=== PATIENT | female | born 1955 ===

== ENCOUNTER 2025-03-25 14:20 | Outpatient (AMB) | payer MEDICARE, SELFPAY ==
--- NOTE | 2025-03-25 14:23 | MHC.PC.OV ---
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 Required: No Allergies latex Allergy (Mild, Verified 03/25/25 14:28) Rash Sulfa (Sulfonamide Antibiotics) Allergy (Mild, Verified 03/25/25 14:28) Back Pain Medication List - Last Reconciled 03/25/25 by Katie Peterson PA-C No Known Home Meds Tobacco use date assessed: 03/25/25 Fall risk assessment: No Falls in past year Last assessed Fall Risk: 03/25/25 Dental Screening Dental Screen Date: 03/25/25 Did you have a dental visit in the last 12 months?: Yes Did you have a dental problem in the last 6 months where you did not have access to dental care?: No Was dental information given to patient?: Patient has dentist HPI [facility] [employer] [facility] HPI Details Patient is a 69-year-old female who presents today to establish care. She is transferring from [facility]. No acute concerns today CV: Blood pressure today in the office is 132/76. Uro: a couple years ago had blood in the urine and was dx with UTI. 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, 2023 Colonoscopy: never, would do cologuard Mammo: overdue Bone density: overdue Lung ca screen: never had, unsure of going Fam hx: father parkinson's PFSH Surgical History (Updated 03/25/25 @ 14:31 by Eder Schmidt MA) H/O breast surgery History of surgery on arm Social History (Updated 03/25/25 @ 14:31 by Eder Schmidt MA) Housing: House Alcohol intake: current Patient Tobacco Use Status: Current everyday Tobacco user Cigarettes Per Day: 15 Years Smoked: 40 Packs per year/per ci.00 e-Cigarette/Vaping Use: Never Used Second Hand Smoke Exposure: Yes Use of substances other than those prescribed or required for medical reasons: No service: No Current occupational status: employed Current occupation: insurance representative Current occupational exposures/hazards: No Cognitive needs: No Hearing needs: No Vision needs: No Questionnaire PHQ-9 Over the last 2 weeks, how often have you been bothered by any of the following problems? 1. Little interest or pleasure in doing things: not at all 2. Feeling down, depressed, or hopeless: not at all 3. Trouble falling or staying asleep, or sleeping too much: not at all 4. Feeling tired or having little energy: not at all 5. Poor appetite or overeating: not at all 6. Feeling bad about yourself - or that you are a failure or have let yourself or your family down: not at all 7. Trouble concentrating on things, such as reading the newspaper or watching television: not at all 8. Moving or speaking so slowly that other people could have noticed. Or the opposite - being so fidgety or restless that you have been moving around a lot more than usual: not at all 9. Thoughts that you would be better off or of hurting yourself in some way: not at all Total score: 0 Depression Screening Interpretation: Negative Depression Screening Done: Yes 35652 - PHQ-9 Billing: Yes Source: Developed by Drs. Aravind Miguel, Estrella Garcia, Bryan Tobias and colleagues, with an educational óscar from [employer] Thrive Questionnaire Date Thrive assessed: 03/23/25 I am a: Patient What is your living situation today?: I have a steady place to live Within the past 12 months, did the food you bought not last and you didn't have the money to get more?: I choose not to answer this question Within the past 12 months, did you worry whether your food would run out before you got money to buy more?: I choose not to answer this question Do you have trouble paying for medicines?: I choose not to answer this question Do you have trouble getting transportation to medical appointments?: I choose not to answer this question Do you have trouble paying your heating and electricity bill?: I choose not to answer this question Do you have trouble taking care of your child, family member or friend?: I choose not to answer this question Do you have trouble with day-to-day activities such as bathing, preparing meals, shopping, managing finances, etc.?: I choose not to answer this question Are you currently unemployed and looking for a job?: I choose not to answer this question Are you interested in more education?: I choose not to answer this question Please select the resources that you would like help with: None Currently or been in a relationship where the following occur: I choose not to answer THRIVE Score: 0 AUDIT C Alcohol Use Questionnaire (AUDIT-C) 1. How often do you have a drink containing alcohol?: 2-3 times a week 2. How many drinks containing alcohol do you have on a typical day when you are drinking?: 1 or 2 3. How often do you have six or more drinks on one occasion?: Never Total Score: 3 Score Reviewed/Action Taken: Yes PJ-7 AMB Questionnaire PJ-7 Date PJ - 7 assessed: 03/25/25 Feeling nervous, anxious, or on edge: 0 = Not at all Not being able to stop or control worryin = Not at all Worrying too much about different things: 0 = Not at all Trouble relaxin = Not at all Being so restless that it is hard to sit still: 0 = Not at all Becoming easily annoyed or irritable: 0 = Not at all Feeling afraid as if something awful might happen: 0 = Not at all Total PJ-7 score (0-4 normal; 5-9 mild; 10-14 moderate; 15-21 severe): 0 Source: Developed by Drs. Aravind Miguel, Estrella Garcia, Bryan Tobias and colleagues, with an educational óscar from [employer] PJ-7 Assessment Billing PJ-7 Assessment Tool: PJ-7 Assessment 85569 Physical exam (Primary Care) Vital Signs: Last Vital Signs Temp 98.5 F 03/25/25 14:32 Pulse 78 03/25/25 14:32 Resp 18 03/25/25 14:32 BP 132/76 03/25/25 14:32 Pulse Ox 97 03/25/25 14:32 Oxygen Delivery Method Room Air 03/25/25 14:32 BMI result Body Mass Index 26.1 Tobacco/Smoking Status: Tobacco use Status Tobacco use date assessed 03/25/25 03/25/25 14:32 Patient Tobacco Use Status Current everyday Tobacco 03/25/25 14:32 e-Cigarette/Vaping Use Never Used 03/25/25 14:32 PHQ-9: PHQ-9 Score PHQ-9: Total score 0 03/25/25 14:28 Depression Screening Interpretation: Negative Thrive Assessment: Date of Thrive Assessment Date Thrive assessed 03/23/25 03/25/25 14:25 Currently or been in a relationship where the following occur: I choose not to answer Const Orientation/consciousness: patient oriented x3 HENMT Ears: hearing grossly normal bilaterally General nose exam: No nasal polyps present Face and sinus: Yes sinuses nontender Mouth: Normal oral and palatal mucosa present Eyes Pupils: Equal, round and reactive pupils present EOM: EOMs intact bilaterally Neck Neck: Yes full ROM and Yes no lymphadenopathy Thyroid: Thyroid normal Lymphatic: no lymphadenopathy noted Chest Chest palpation & inspection: normal inspection of the chest Resp Auscultation: clear to auscultation bilaterally Cardio Rate: regular rate Rhythm: regular rhythm Heart sounds: S1 normal heart sound present and S2 normal heart sound present Peripheral pulses: Peripheral pulses 2+ throughout GI Other: Soft, nontender Inspection: Yes normal to inspection Palpation (GI): Soft to palpation and Other GI palpation findings present (nontender, no cva tenderness) Auscultation: normoactive bowel sounds Rectal Exam - Female: deferred General: Yes no CVA tenderness Back/Spine/Pelvis Other: Nontender Back: no CVA tenderness Skin General skin exam: no rashes or lesions noted Neuro General: patient oriented x3, gait normal and no focal motor deficits Cranial nerves: Yes Equal, round and reactive pupils present Motor exam (neuro): 5/5 motor strength present throughout Sensory Exam: double simultaneous stimulation for sensation normal Coordination: hkzloj-eq-bief test normal and Romberg test negative Extrem General: Yes normal to inspection and Yes full ROM Psych Affect: normal affect Attitude: cooperative Thought process: Normal thought process present Thought content: Normal thought content present Insight: Good insight present (Psych) Judgement: Good judgement present (Psych) Coding Level of Care Code New Pt Prev Care >65yr (89113) Diagnoses Routine general medical examination at a health care facility Z00.00 Smoker F17.200 Additional Codes PJ-7 Assessment Billing - PJ-7 Assessment Tool: PJ-7 Assessment 75952 ([id number]) PHQ-9 - 28109 - PHQ-9 Billing: Yes ([id number]) Assessment & Plan Assessment & Plan (1) Routine general medical examination at a health care facility: Code(s): Z00.00 - Encounter for general adult medical examination without abnormal findings Plan: hm reviewed labs ordered cologuard ordered mammo ordered bone density ordered (2) Smoker: Code(s): F17.200 - Nicotine dependence, unspecified, uncomplicated Category: Social Hx Plan: declines ldct Orders: Orders Comprehensive [place]. Panel Fast Today Z00.00 - Encounter for general adult medical examination without abnormal findings Complete Blood Count Auto Diff Today Z00.00 - Encounter for general adult medical examination without abnormal findings TSH reflex Free T4 Today Z00.00 - Encounter for general adult medical examination without abnormal findings UA CC w/rflx Micro + Cult Today R30.0 - Dysuria, Z00.00 - Encounter for general adult medical examination without abnormal findings MM screening mammo BI Today Z12.31 - Encounter for screening mammogram for malignant neoplasm of breast XR DEXA axial skeleton Today Z78.0 - Asymptomatic menopausal state Lipid Panel Today Z00.00 - Encounter for general adult medical examination without abnormal findings Microalbumin, Random (w Creat) Today Z00.00 - Encounter for general adult medical examination without abnormal findings Referrals Cologuard Test Z12.11 - Encounter for screening for malignant neoplasm of colon Medications: New hydrocortisone 2.5% 1 appl CA Q8-12H PRN 30 grams 3RF itching
[2025-03-25 14:32] VITALS: BP 132/76; PULSE 78; RESP 18; TEMP 36.9; O2SAT 97; BMI 26.1
--- OUTSIDE RECORDS SUMMARY | 2025-03-25 20:32 | XMS_ITS | Patient Health Record ---
Author Organization [facility] Address [address] [place] [address] Care Team Providers Care Medical Claims Processor Name Role Phone Gabriella Cain Unavailable [phone] Allergies Allergen (clinical drug ingredient) Drug/Non Drug Allergy documented on EMR Reaction Allergy Type Onset Date Status Latex Latex Unknown Allergy Active polyethylene glycols Polyethylene Glycol Unknown Drug Joseph rgy Active Substance with sulfonamide structure and antibacterial mechanism of action (substance) Sulfa Antibiotics Unknown Drug Allergy Active thimerosal Thimerosal Unknown Drug Allergy Activ e Reason For Referral No Information Medications Medication SIG (Take, Route, Fr equency, Duration) Notes Start Date End Date Status Vagifem 10 MCG 1 tablet Vaginal Two times a Week; Duration: 84 days Active Acidophilus Active Vagifem 10 MCG 1 tablet Vaginal THR ICE A WEEK; Duration: 90 days 05/23/2024 Active Social History Tobacco Use: Social History Observation Description Date Details (start date - stop date) Current Smoker NA - NA AUDIT-C (Standard) Question Answer Notes Did you have a drink contain ing alcohol in the past year? Yes How often did you have six o r more drinks on one occasion in the past year? Never (0 point) How many drinks did you have on a typical day when you were drinking in the past year? 1 or 2 drinks (0 point) How often did you have a dri nk containing alcohol in the past year? Monthly or less (1 point) Points 1 Interpretation Negative Tobacco Control (Standard) Question Answer Notes Tobacco use: Current smoker How often do you smoke cigarettes? Every day How many cigarettes a day do you smoke? - Section Notes: .CE: Smoking: Current smoker .CE: Smoking Amount: 1 PPD .CE: ALCOHOL: socially drinks alcohol Problems Problem Type SNOMED Code ICD Code Onset Dates Problem Status W/U Status Risk Notes Problem Postmenopausal atrophic vaginitis (91443187) Postmenopausal atrophic vaginitis (N95.2) Active confirmed Problem Squamous cell carcinoma of skin (769926605) Squamous cell carcinoma of skin, unspecified (C44.92) Active confirmed Problem Hemorrhoids without complication (33120313) Unspecified hemorrhoids without mention of complication (455.6) Active confirmed Major Problem Menopausal symptom (61829612) Symptomatic menopausal or female climacteric states (627.2) Active confirmed Major Problem Gynecological examination normal (314061692940159) Routine gynecological examination (V72.31) Active confirmed Major Problem Counseling (263250567) Counseling NOS (V65.40) Active confirmed Diag Problem Screening for malignant neoplasm of colon (586224611) Special screening for malignant neoplasms, colon (V76.51) Active confirmed Major Vital Signs Temperature 97.9 degrees Fahrenheit 05/23/2024 Blood pressure diastolic 80 mm Hg 05/23/2024 Height 64 in 05/23/2024 Blood pressure systolic 130 mm Hg 05/23/2024 Weight 159 lbs 05/23/2024 BMI 27.29 kg/m2 05/23/2024 Encounters Encounter Location Date Provider Diagnosis [address] [place] [address] 05/23/2024 Gabriella Cain Encounter for gynecological examination (general) (routine) without abnormal findings Z01.419 ; Encounter for screening mammogram for malignant neoplasm of breast Z12.31 ; Other specified disorders of bone density and structure, multiple sites M85.89 ; Postmenopausal atrophic vaginitis N95.2 and Dizziness and giddiness R42 Assessments Encounter Date Diagnosis (ICD Code) Assessment Notes Treatment Notes Treatment Clinical Notes Section Notes 05/23/2024 Encounter for gynecological examination (general) (routine) without abnormal findings (ICD-10 - Z01.419) NO PAP TEST, DUE IN 2024. 05/23/2024 Encounter for screening mammogram for malignant neoplasm of breast (ICD-10 - Z12.31) REGULAR MAMMOGRAMS AND SBE'S WERE RECOMMENDED. 05/23/2024 Other specified disorders of bone density and structure, multiple sites (ICD-10 - M85.89) DISCUSSED HER LAST BMD AND SEVERE OSTEOPENIA AND ITS IMPACT ON HER HEALTH. ADEQUATE CALCIUM AND VIT D. WEIGHT BEARING EXERCISES. REPEAT BMD IN 2024. 05/23/2024 Postmenopausal atrophic vaginitis (ICD-10 - N95.2) CONTINUE VAGIFEM. RX WITHOU SUBS WILL BE SENT TO PHARMACY. 05/23/2024 Dizziness and giddiness (ICD-10 - R42) DISCUSSED COMMON CAUSES OF LIGHT HEADEDNESS. ADVISED PAT TO SEE HER PCP AND TO DISCUSS THIS WITH HER OR HIM. WORK UP WILL BE STARTED: CBC, COMPREHENSIVE METABOLIC PROFILE, TSH, HEMOGLOBIN A1C, LIPID PROFILE. Plan Of Treatment Pending Test Test Name Order Date MAMMOGRAM, SCREENING 02/05/2019 MAMMOGRAM, SCREENING 02/10/2020 MAMMOGRAM, SCREENING 05/11/2021 MAMMOGRAM, SCREENING 05/16/2022 MAMMOGRAM, SCREENING 05/18/2023 MAMMOGRAM, SCREENING 10/08/2017 Urinalysis 09/28/2015 Urinalysis 10/08/2017 DIAGNOSTIC MAMMOGRAM, RIGHT BREAST 05/11 1,25OH VITAMIN D 11/02/2015 25OH VITAMIN D 05/22/2022 N-TELOPEPTIDE CROSS 05/22/2022 PTH, INTACT 05/22/2022 TSH 11/02/2015 BONE DENSITY 05/18/2023 BONE DENSITY 05/23/2024 BONE DENSITY 05/11/2021 BONE DENSITY 10/08/2017 MM Digital Mammo Screening 02/05/2019 MM Digital Mammo Screening 10/08/2017 MM Digital Mammo Screening 05/11/2021 MM Digital Mammo Screening 02/10/2020 MM Digital Mammo Screening 05/16/2022 MM Digital Mammo Screening 05/23/2024 MM Digital Mammo Screening 05/18/2023 MM Digital Mammo Screening 10/02/2016 Right Breast Ultrasound 05/11/2021 Hemoglobin [id number] 05/23/2024 TSH-[id number] 05/23/2024 CBC, Platelet, No Differential-[id number] Vitamin D, [id number] 05/23/2024 Lipid Panel-[id number] 05/23/2024 Comp. Metabolic Panel [phone] Next Appt Details Provider Name:Gabriella kim, 06/01/2025 08:20:00 AM, [address], [address], [place], [address], Insurance Providers Payer Name Payer Address Payer Phone Subscriber Number Group Number Insured Name Patient Relationship to Insured Coverage Start Date Coverage End Date MEDICARE [address] [place], [place] [id number] CHRISTIAN MORALES Self - patient is the insured MEDEX [address] [place] [address] [phone] [id number] CHRISTIAN MORALES Self - patient is the insured Medical (General) History Medical History History ICD Code Unspecified hemorrhoids K64.9 Menopausal and female climacteric states N95.1 Postmenopausal atrophic vaginitis N95.2 Disorder of bone density and structure, unspecified M85.9 Unspecified hemorrhoids K64.9 Squamous cell carcinoma of skin, unspeci fied C44.92 Unspecified lump in the right breast, lo wer outer quadrant N63.13 Surgical History Surgery Date(Month/Year) Eyebrow Evcision Left Breast Biopsy Tooth Removed 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
== END 2025-03-25 15:15 | disposition home or self-care (01) ==
LOC: HO.HMCFM 14:20
PROVIDERS: PCP Physician Assistant; Visit Provider Physician Assistant
DX: Z00.00 Encounter for general adult medical examination without abnormal findings (principal); F17.200 Nicotine dependence, unspecified, uncomplicated

== ENCOUNTER → 2025-03-25 14:20 | Outpatient (BNVA) | payer MEDICARE, SELFPAY | PROVIDERS: PCP Physician Assistant; Visit Provider Physician Assistant | DX: Z00.00 Encounter for general adult medical examination without abnormal findings (principal); R30.0 Dysuria; F17.210 Nicotine dependence, cigarettes, uncomplicated | CPT/HCPCS: 96127; 99387 ==

== ENCOUNTER 2025-04-20 07:57 | Outpatient (REF) | payer MEDICARE, SELFPAY ==
[2025-04-20 11:21] LABS: MANUAL DIFF FLAG NO
[2025-04-20 11:44] LABS: Appearance Urine Cloudy; Glucose Urine UA Negative (Negative); PH 6.0 (5.0-9.0); Specific Gravity - Urine 1.020 (1.005-1.025)
[2025-04-20 12:08] LABS: Hematocrit 43.7 % (37.0-47.0); Hemoglobin 14.2 g/dl (12.0-16.0); Imm Gran Abs Auto 0.03 X10*3/uL (0.00-0.03); Imm Gran Pct Auto 0.4 % (0.0-0.4); Lymphocytes Absolute Auto 2.2 X10*3/uL (1.2-4.9); Mean Corpuscular HGB Conc 32.5 g/dl (31.0-35.0); Mean Corpuscular Hemoglobin 31.5 pg (27.0-33.0); Mean Corpuscular Volume 96.9 fL (80.0-98.0); NRBC Abs Auto 0.000 X10*3/uL (0.0-0.012); NRBC Pct Auto 0.0 /100WBC (0.0-0.2); Platelet Count 212 X10*3/uL (160-400); Red Blood Count 4.51 X10*6/uL (4.20-5.50); White Blood Count 7.5 X10*3/uL (4.8-10.8)
[2025-04-20 12:22] LABS: Microalbum/Creatinine Ratio Ur 3.6 ug/mg cr (<30)
[2025-04-20 12:37] LABS: Alanine Aminotransferase 14 U/L (0-31); Albumin Level 4.2 g/dL (3.5-5.0); Alkaline Phosphatase 63 U/L (39-117); Anion Gap 10 (12-20); Aspartate Amino Transferase 24 U/L (5-31); Blood Urea Nitrogen 16 mg/dL (9-16); Calcium 9.2 mg/dL (8.4-10.2); Carbon Dioxide 28 mmol/L (22-29); Chloride 108 mmol/L (96-108); Cholesterol 193 mg/dL (<200); Estimated Glomerular Filt Rate > 60; HDL Cholesterol 53 mg/dL (>40); Potassium 3.9 mmol/L (3.3-5.1); Sodium 142 mmol/L (135-145); Total Protein 6.4 g/dL (6.5-8.0); Triglycerides 107 mg/dL (<150)
== END 2025-04-20 07:58 | disposition home or self-care (01) ==
LOC: HO.WFDLDS 07:57
PROVIDERS: Visit Provider Physician Assistant
DX: Z00.00 Encounter for general adult medical examination without abnormal findings (principal); R30.0 Dysuria; Z13.6 Encounter for screening for cardiovascular disorders; Z13.29 Encounter for screening for other suspected endocrine disorder
CPT/HCPCS: 36415; 80053; 80061; 81003; 82043; 82570; 84443; 85025